=== PATIENT | female | born 1930 ===

== ENCOUNTER 2019-01-25 08:31 | Emergency (ER) | payer MEDICARE, BC ==
[~2019-01-25] VITALS: Ht 160 cm; Wt 68.0 kg
[~2019-01-25 08:31] MED LIST: AMLO5 PO; ASPI81CH PO; LISI20 PO; LORA.5 PO; MELA3 PO; MELO7.5 PO; METO50ER PO; PRAM.5 PO; Prilosec Otc20 MG
[2019-01-25] MEDS ORDERED: CLON.5 PO (09:27)
[2019-01-25] MEDS ORDERED: DICLOFENAC SOD100 G1 (09:27)
[2019-01-25] MEDS ORDERED: HYDR10 PO (09:28)
[2019-01-25] MEDS ORDERED: Robaxin500 MG PO (11:06)
[2019-01-25] MEDS ORDERED: Acetaminophen-1 EAC1 PO (11:06)
[2019-01-25] MEDS ORDERED: IBUP600 PO (11:06)
--- NOTE | 2019-01-25 11:30 | NUR ---
PATIENT PERMISSION PATIENT GAVE THIS STUDENT NURSE PERMISSION TO PROVIDE CARE ON 01/25/2019 FROM [id number].
== END 2019-01-25 11:00 | disposition home or self-care (01) ==
LOC: ER 08:31
DX: M54.16 Radiculopathy, lumbar region (principal); Z88.5 Allergy status to narcotic agent; Z88.8 Allergy status to other drugs, medicaments and biological substances; Z79.899 Other long term (current) drug therapy; Z79.82 Long term (current) use of aspirin
CPT/HCPCS: 72100; 96372; 99283-25; J1100; J1885

== ENCOUNTER 2019-01-28 10:06 | Emergency (ER) | payer MEDICARE, BC ==
[~2019-01-28] VITALS: Ht 160 cm; Wt 68.0 kg
[~2019-01-28 10:06] MED LIST changes: +Acetaminophen-1 EAC1 PO; +CLON.5 PO; +DICLOFENAC SOD100 G1; +HYDR10 PO; +IBUP600 PO; -LISI20 PO; +Robaxin500 MG PO; +ZESTRIL40 MG PO
[2019-01-28] MEDS ORDERED: LIDO700A20 TOP (14:33)
[2019-01-28] MEDS ORDERED: TYLECOD3 PO (14:33)
[2019-01-28] MEDS ORDERED: Robaxin500 MG PO (14:33)
== END 2019-01-28 13:53 | disposition home or self-care (01) ==
LOC: ER 10:06
DX: M54.41 Lumbago with sciatica, right side (principal); I10 Essential (primary) hypertension; K21.9 Gastro-esophageal reflux disease without esophagitis; Z88.5 Allergy status to narcotic agent; Z88.8 Allergy status to other drugs, medicaments and biological substances; Z79.899 Other long term (current) drug therapy; Z79.82 Long term (current) use of aspirin
CPT/HCPCS: 99283; A9270-GY

== ENCOUNTER 2019-02-01 11:08 | Inpatient (IN) | payer MEDICARE, BC ==
[~2019-02-01] VITALS: Ht 160 cm; Wt 66.9 kg
[~2019-02-01 11:08] MED LIST changes: +LIDO700A20 TOP; +TYLECOD3 PO
[2019-02-01 12:18] LABS: Alanine Aminotransfer (ALT/SGP 27 U/L (12-78); Albumin, Blood 3.4 g/dL (3.4-5.0); Albumin/Globulin Ratio 0.9 (0.8-1.8); Alk Phos 106 U/L (50-136); Anion Gap 8 mmol/L (6-16); Aspartate Aminotrans (AST/SGOT 41 U/L (12-37); Bilirubin, Total 0.6 mg/dL (0.1-1.0); Blood Urea Nitrogen 53 mg/dL (8-24); Bun/Creatinine Ratio 26.6 (12.0-20.0); CO2, Blood 23 mmol/L (21-32); CPK Creatine Kinase 341 U/L (26-193); Calcium, Blood 9.7 mg/dL (8.5-10.1); Chloride, Blood 106 mmol/L (98-108); Creatinine, Blood 1.99 mg/dL (0.40-1.00); Globulin, Blood 3.7 g/dL (2.2-4.0); Glomerular Filtration Rate 25 (60-); Glucose, Blood 101 mg/dL (70-99); Sodium, Blood 137 mmol/L (136-145); Total Protein, Blood 7.1 g/dL (6.4-8.2)
[2019-02-01 12:19] LABS: BASOPHILS ABSOLUTE AUTO 0.06 K/mm3 (0.00-0.23); BASOPHILS PERCENT AUTO 1 % (0-2); EOSINOPHILS ABSOLUTE AUTO 0.63 K/mm3 (0.00-0.68); EOSINOPHILS PERCENT AUTO 6 % (0-6); Hematocrit 51.4 % (33.0-51.0); Hemoglobin 15.8 g/dL (11.5-16.0); IMMATURE GRAN ABSOLUTE AUTO 0.03 K/mm3 (0.00-0.10); IMMATURE GRAN PERCENT AUTO 0 % (0-1); LYMPHOCYTES ABSOLUTE AUTO 2.58 K/mm3 (0.84-5.20); LYMPHOCYTES PERCENT AUTO 24 % (21-46); MONOCYTES ABSOLUTE AUTO 1.25 K/mm3 (0.16-1.47); MONOCYTES PERCENT AUTO 12 % (4-13); Mean Corpuscular HGB 29.5 pg (26.0-34.0); Mean Corpuscular HGB Conc 30.7 g/dL (31.5-36.5); Mean Corpuscular Volume 96 fL (80-100); Mean Platelet Volume 9.6 fL (9.1-12.4); NEUTROPHILS ABSOLUTE AUTO 6.23 K/mm3 (1.96-9.15); NEUTROPHILS PERCENT AUTO 58 % (41-73); Platelet Count 212 K/mm3 (150-400); RDW Coefficient Variation 12.6 % (11.7-14.2); RDW Standard Deviation 45.1 fL (35.1-46.3); Red Blood Cell Count 5.36 M/mm3 (3.80-5.20); White Blood Cell Count 10.78 K/mm3 (4.00-11.30)
[2019-02-01 12:25] LABS: Acetaminophen, Random <2.0 ug/mL (10.0-30.0)
[2019-02-01 12:35] LABS: Source, Urine Catheter
[2019-02-01 12:42] LABS: Creatine Kinase MB 11.3 ng/mL (0.0-3.6); Creatine Kinase MB Index 3.3 (0.0-4.0)
[2019-02-01 12:52] LABS: Bilirubin, Urine Neg (Neg); Blood, Urine Neg (Neg); Glucose Qualitative, Urine Neg (Neg); Ketones, Urine Neg (Neg); Leukocyte Esterase, Urine Neg (Neg); Nitrite, Urine Neg (Neg); Protein, Urine Neg (Neg); Specific Gravity, Urine 1.015 (1.003-1.022); Urobilinogen, Urine NORM (Normal)
[2019-02-01 12:53] LABS: Appearance, Urine Clear (Clear); Color, Urine Yellow (P-Yellow)
--- NOTE | 2019-02-01 14:07 | NUR ---
Initial Visit: Called to ER to see this patient. Reviewed case and details with Dr. Morse. Pt likely too too much medication and it made her overly tired. There is nothing to admit her with, as of the time of this note. Pt has been in the ER this last week with weakness and sciatic pain on the right side. Pt was signed up for home health with [facility] last time she was in the ER. Spoke to family. Pt appears to be resting with her eyes closed, she appears to be sleeping at this time. Pt's sister, Atiya and pt's daughter are bedside. Daughter is anxious, showing extreme caregiver stress. She reports that pt has been very heavy care and she can't take care of her anymore. Daughter is in very poor health herself and feels that she will "fall flat on my face pretty soon." Pt has not been able to perform any ADLs. Daughter reports that she has been placed in diapers because she can't get her to the restroom r/t inability to ambulate. Pt's son in law has been cooking and trying to balance the checkbook. Atiya believes that pt makes about $2,000 per month. Daughter wants us to put her in a hospice house - instructed that there is not a hospice house in the community. Pt does not have a POLST form, currently. She has had it at home and has refused to sign it, until today she agreed to sign it. Son in law is headed to the house to get it. Atiya reports that home health is a good service, but pt's care needs are too much for them to handle. Pt able to feed herself, but family reports frequent choking and state that her swallow is getting much worse. They have not tried crushed meds, they were not aware that this could be done. Daughter strongly feels that pt should be on hospice because she has three different medications for her blood pressure. Educated on hospice eligability. Placed social media marketing analyst referal for pt. Dr. Morse has said that he cannot find anything to admit her for. Call to care managers. Willa, merchandise planner, called and stated that was in the room to admit the pt. Recommend swallow eval. Will remain available for symptom managment during her hospital admission.
[2019-02-01] MEDS ORDERED: GABA300 PO (14:19)
[2019-02-01] MEDS ORDERED: Acetaminophen-1 EAC1 PO (15:10)
[2019-02-01] MEDS ORDERED: Prilosec Otc20 MG PO (16:24)
[2019-02-01] MEDS ORDERED: MELATONIN5 M1 PO (16:25)
[2019-02-01] MEDS ORDERED: ASPI81CH PO (16:27)
[2019-02-01] MEDS ORDERED: DICL75ER PO (16:27)
[2019-02-01] MEDS ORDERED: MELO7.5 PO (16:28)
--- NOTE | 2019-02-01 18:19 | NUR ---
SHIFT SUMMARY CAROLIN ARRIVED ON MEDICAL FLOOR SHORTLY AFTER 4PM FROM ED. PT SOMEWHAT CONFUSED. FAMILY PRESENT. COMPLAINS OF PAIN ON R SIDE, USED REPOSITIONING AND PILLOWS WITH TYLENOL. CATHETER PATENT AND DRAINING. TELE SHOWS NSR. ON ROOM AIR AND SATS IN 90S. TOOK MEDS PRESCRIBED. WCTM
[2019-02-02 04:52] LABS: BASOPHILS ABSOLUTE AUTO 0.06 K/mm3 (0.00-0.23); BASOPHILS PERCENT AUTO 1 % (0-2); EOSINOPHILS ABSOLUTE AUTO 0.62 K/mm3 (0.00-0.68); EOSINOPHILS PERCENT AUTO 8 % (0-6); Hematocrit 40.1 % (33.0-51.0); Hemoglobin 12.8 g/dL (11.5-16.0); IMMATURE GRAN ABSOLUTE AUTO 0.02 K/mm3 (0.00-0.10); IMMATURE GRAN PERCENT AUTO 0 % (0-1); LYMPHOCYTES ABSOLUTE AUTO 2.21 K/mm3 (0.84-5.20); LYMPHOCYTES PERCENT AUTO 29 % (21-46); MONOCYTES PERCENT AUTO 14 % (4-13); Mean Corpuscular HGB 29.1 pg (26.0-34.0); Mean Corpuscular HGB Conc 31.9 g/dL (31.5-36.5); Mean Platelet Volume 9.7 fL (9.1-12.4); NEUTROPHILS ABSOLUTE AUTO 3.67 K/mm3 (1.96-9.15); NEUTROPHILS PERCENT AUTO 48 % (41-73); Platelet Count 261 K/mm3 (150-400); RDW Coefficient Variation 12.5 % (11.7-14.2); RDW Standard Deviation 41.4 fL (35.1-46.3); White Blood Cell Count 7.68 K/mm3 (4.00-11.30)
[2019-02-02 05:01] LABS: Anion Gap 5 mmol/L (6-16); Blood Urea Nitrogen 38 mg/dL (8-24); Bun/Creatinine Ratio 44.9 (12.0-20.0); CO2, Blood 21 mmol/L (21-32); Calcium, Blood 8.3 mg/dL (8.5-10.1); Chloride, Blood 117 mmol/L (98-108); Creatinine, Blood 0.85 mg/dL (0.40-1.00); Glomerular Filtration Rate >60 (60-); Glucose, Blood 112 mg/dL (70-99); Sodium, Blood 143 mmol/L (136-145)
[2019-02-02 05:04] LABS: Mean Corpuscular Volume 91 fL (80-100)
--- NOTE | 2019-02-02 07:44 | NUR ---
02/02/19 0600 MEDICATED FOR SEVERE RT SHOULDER.HIP AND LEG PAIN THIS AM AND REGULARLY THIS SHIFT. VITALS STABLE. REPOSITIONED Q 2 HOURS. JAMES PATNET AND DRAINING WELL. MRI SCHEDULED FOR TODAY.
--- NOTE | 2019-02-02 16:51 | NUR ---
PT IS A/OX2, FORGETFULL AT TIMES, AND HALUCINATING AT TIMES MOST LIKLEY FROM THE IV PAIN MEDICATION, THE PT WAS MEDICATED FOR PAIN T/O THE DAY, THIS AM THE PT REPORTED THAT SHE FELT A POP/CRACK IN HER BACK AND THAT IT HAD ACTUALLY MADE HER FEEL A LITTLE BETTER AT THAT SHE COILD MOVE HER LEGS MORE FREELY, THE PT WAS TAKEN TO MRI TODAY AND TOLERATED THE PROCEDURE WELL, THE PT APPEARS TO BE BREATHING EASILY ON RA AT THIS TIME, CALL LIGHT IN REACH, FAMILY AT THE BEDSIDE, THIS AFTERNOON THE FAMILY ASKED FOR CARE MANAGMENT TO BE INVOLVED WITH DC PLANNING A MESSAGE WAS LEFT WITH CARE MANAGMENT
--- NOTE | 2019-02-02 18:42 | NUR ---
Mrs. Byrd was surrounded by family. They are clearly devoted and supportive of pt and one another. Dtr, Luz, has been caring for her mother. She tells me "it has gotten to be too much." Donor Specialist has been involved. Family and pt responded well to prayer and spiritual direction. Mrs. Byrd is pleasantly confused and weak. She denied pain or conerns. POL completed and I made several copies. One placed in chart, one hand-carried to Medical Records, and the original given to dtr. I will remain available.
[2019-02-03 05:30] LABS: Hematocrit 42.9 % (33.0-51.0); Hemoglobin 13.9 g/dL (11.5-16.0); Mean Corpuscular HGB 29.3 pg (26.0-34.0); Mean Corpuscular HGB Conc 32.4 g/dL (31.5-36.5); Mean Corpuscular Volume 90 fL (80-100); Mean Platelet Volume 9.4 fL (9.1-12.4); Platelet Count 273 K/mm3 (150-400); RDW Coefficient Variation 12.3 % (11.7-14.2); RDW Standard Deviation 41.1 fL (35.1-46.3); Red Blood Cell Count 4.75 M/mm3 (3.80-5.20); White Blood Cell Count 8.24 K/mm3 (4.00-11.30)
[2019-02-03 05:49] LABS: Albumin, Blood 3.1 g/dL (3.4-5.0); Anion Gap 3 mmol/L (6-16); Blood Urea Nitrogen 15 mg/dL (8-24); Bun/Creatinine Ratio 25.4 (12.0-20.0); CO2, Blood 27 mmol/L (21-32); Calcium, Blood 8.6 mg/dL (8.5-10.1); Chloride, Blood 110 mmol/L (98-108); Creatinine, Blood 0.59 mg/dL (0.40-1.00); Glomerular Filtration Rate >60 (60-); Glucose, Blood 100 mg/dL (70-99); Phosphorus, Blood 1.8 mg/dL (2.5-4.9); Potassium, Blood 3.7 mmol/L (3.5-5.5); Sodium, Blood 140 mmol/L (136-145)
--- NOTE | 2019-02-03 07:10 | NUR ---
SHIFT SUMMARY PT AOX2, CONFUSED OF DATE, WHERE SHE IS @TIMES STATES "I DON'T KNOW WHAT BUILDING I'M IN" HOWEVER CAN STATE SHE'S IN THE HOSPITAL @TIMES. FOLLOWS DIRECTIONS. VERY TEARFUL, AGITATED, ANXIOUS T/O NIGHT & WANTING TO GO HOME, REASSURED PT MULTIPLE TIMES WHERE SHE WAS & LISTENED TO CONCERNS. THIS AM PT WANTED TO CALL DAUGHTER, WE CALLED TO SEE IF IT WOULD HELP CALM HER, HOWEVER PT GOT MORE AGITATED & TEARFUL AFTER TALKING W/DAUGHTER, STATING "YOU HATE ME, WHO KNOW WHAT I MIGHT DO TO MYSELF, I MIGHT END UP DYING, PLEASE COME GET ME & TAKE ME HOME." I TALKED W/DAUGHTER & SHE REPORTED HER MOTHER SUFFERS FROM SEVERE DEPRESSION & SHE COULD TELL WE NEEDED TO MEDICATE HER W/SOMETHING TO CALM HER DOWN. NOTIFIED DR CARSON & HE ORDERED HALDOL. DENIES SOB. REPORTS PAIN W/MOVEMENT, MEDICATED 1X W/25MCG FENTANYL & PT ALSO REPORTED NAUSEA AFTER NEW IV INSERTION & WAS MEDICATED 1X W/ZOFRAN PER ORDERS. BP WAS INCREASED LAST NIGHT TO 191/84 & HOSPITALIST ANDRESSA ORDERED LISINOPRIL. CALL LIGHT IN REACH.
--- NOTE | 2019-02-03 15:03 | NUR ---
PT IS A/OX3, PLEASANT AND COOPERATIVE AT THIS TIME, THE PT THIS AM WAS VERY TEARFULL AND DISORIENTED, SHE IS CALMER THIS AFTERNOON, THE PT WAS MIRAPEX FOR RESTLESS LEGS AND KLONOPIN FOR ANXITY WELL MEDICATED FOR PAIN THIS AM, MULTIPLE FAMILY WAS IN TO SEE THE PT, DR. YEH CAME BACK TO THE ROOM AND SPOKE WITH THE FAMILY, THE PT APPEARS TO BE BREATHING EASILY ON RA AT THIS TIME, THE PT IS ABLE TO POSITION HERSELF WITH SOME HELP, CALL LIGHT IN REACH WILL CONTINUE TO MONITOR AND ASSESS FOR CHANGES
--- NOTE | 2019-02-04 04:49 | NUR ---
SHIFT SUMMARY PT REPORTS SHE GOT SOME SLEEP LAST NIGHT. MORE AO TONIGHT & NOT CONFUSED PREVIOUS NIGHT, AOX2- STILL UNAWARE OF DATE, HOWEVER KNOWS SHE IS IN THE HOSPITAL. HASN'T HAD ANY HALLUCINATIONS T/O NIGHT OR BEEN YELLING OUT. DENIES SOB OR N/V. REPORTING 5-10/10 PAIN IN LOWER BACK & RIGHT LEG, MEDICATED W/FENTANYL 2X & TRAMADOL 2X PER ORDERS. ERIKA IS PATENT & DRAINING. VSS. PER TELE FIBER TECHNICIAN PT IS SINUSBRADY W/HR 56. CALL LIGHT IS IN REACH & PT IS USING IT APPROPRIATELY TONIGHT.
[2019-02-04 05:14] LABS: BASOPHILS ABSOLUTE AUTO 0.08 K/mm3 (0.00-0.23); BASOPHILS PERCENT AUTO 1 % (0-2); EOSINOPHILS ABSOLUTE AUTO 0.47 K/mm3 (0.00-0.68); EOSINOPHILS PERCENT AUTO 7 % (0-6); Hematocrit 41.5 % (33.0-51.0); Hemoglobin 13.3 g/dL (11.5-16.0); IMMATURE GRAN ABSOLUTE AUTO 0.02 K/mm3 (0.00-0.10); IMMATURE GRAN PERCENT AUTO 0 % (0-1); LYMPHOCYTES ABSOLUTE AUTO 2.82 K/mm3 (0.84-5.20); LYMPHOCYTES PERCENT AUTO 40 % (21-46); MONOCYTES ABSOLUTE AUTO 0.82 K/mm3 (0.16-1.47); MONOCYTES PERCENT AUTO 12 % (4-13); Mean Corpuscular Volume 91 fL (80-100); Mean Platelet Volume 9.5 fL (9.1-12.4); NEUTROPHILS ABSOLUTE AUTO 2.78 K/mm3 (1.96-9.15); NEUTROPHILS PERCENT AUTO 40 % (41-73); Platelet Count 278 K/mm3 (150-400); RDW Coefficient Variation 12.6 % (11.7-14.2); RDW Standard Deviation 41.1 fL (35.1-46.3); Red Blood Cell Count 4.58 M/mm3 (3.80-5.20); White Blood Cell Count 6.99 K/mm3 (4.00-11.30)
[2019-02-04 05:43] LABS: Alanine Aminotransfer (ALT/SGP 23 U/L (12-78); Albumin, Blood 2.9 g/dL (3.4-5.0); Albumin/Globulin Ratio 0.9 (0.8-1.8); Alk Phos 94 U/L (50-136); Anion Gap 5 mmol/L (6-16); Aspartate Aminotrans (AST/SGOT 25 U/L (12-37); Bilirubin, Total 0.3 mg/dL (0.1-1.0); Blood Urea Nitrogen 14 mg/dL (8-24); CO2, Blood 24 mmol/L (21-32); Calcium, Blood 8.3 mg/dL (8.5-10.1); Chloride, Blood 114 mmol/L (98-108); Creatinine, Blood 0.56 mg/dL (0.40-1.00); Globulin, Blood 3.4 g/dL (2.2-4.0); Glomerular Filtration Rate >60 (60-); Glucose, Blood 89 mg/dL (70-99); Potassium, Blood 3.7 mmol/L (3.5-5.5); Sodium, Blood 143 mmol/L (136-145); Total Protein, Blood 6.3 g/dL (6.4-8.2)
[2019-02-04] MEDS ORDERED: ACET325 PO (14:34)
[2019-02-04] MEDS ORDERED: Biscolax10 MG PR (14:35)
[2019-02-04] MEDS ORDERED: DOCU100 PO (14:36)
[2019-02-04] MEDS ORDERED: LIDO700A20 TOP (14:36)
[2019-02-04] MEDS ORDERED: Calcitonin-Sal3.7 ML (14:36)
[2019-02-04] MEDS ORDERED: ONDA4ODT MM (14:37)
--- NOTE | 2019-02-04 15:41 | NUR ---
DISCHARGE SUMMARY PATIENT'S IV REMOVED PRIOR TO DISCHARGE. JAMES REMOVED PRIOR TO DISCHARGE. PATIENT HAS MILD RETENTION. NO ACUTE CONCERNS AT THIS TIME. PATIENT TRANSPORTED TO THE MEDICAL CENTER. THE MEDICAL CENTER WAS CALLED FOR REPORT TO [facility].
== END 2019-02-04 15:28 | DRG 682 ==
LOC: ER 11:08 → MEDS 14:53 → ENPENDDIS 02-04 15:02 → MEDS 02-04 15:28
PROVIDERS: Emergency Medicine; Family Medicine; ADMIT Internal Medicine
DX: N17.9 Acute kidney failure, unspecified (principal); G93.41 Metabolic encephalopathy; M48.56XA Collapsed vertebra, not elsewhere classified, lumbar region, initial encounter for fracture; I10 Essential (primary) hypertension; K21.9 Gastro-esophageal reflux disease without esophagitis; N13.30 Unspecified hydronephrosis; R33.9 Retention of urine, unspecified; R13.10 Dysphagia, unspecified; Z66 Do not resuscitate; G25.81 Restless legs syndrome; Z74.01 Bed confinement status; Z86.73 Personal history of transient ischemic attack (TIA), and cerebral infarction without residual deficits
CPT/HCPCS: 36415; 51702; 70450; 72148; 74176; 80048; 80053; 80069; 81003; 82550; 82553; 85025; 85027; 93005; 93010; 96360-59; 97110; 97162; 97530; 99285-25; G0480; J1630; J1650; J2405; J3010; J7030; J7060